=== PATIENT | male | born 1950 | race Caucasian/White ===

== ENCOUNTER → 2020-07-06 14:14 | Outpatient (BNVA) | payer MEDICARE, SELFPAY | PROVIDERS: PCP Internal Medicine; Referring Provider Internal Medicine; Visit Provider Urology | DX: Z76.89 Persons encountering health services in other specified circumstances (principal) | CPT/HCPCS: Q3014 ==

== ENCOUNTER → 2021-03-17 14:52 | Outpatient (BNVA) | payer MEDICARE, SELFPAY | PROVIDERS: PCP Internal Medicine; Visit Provider Urology | DX: E29.1 Testicular hypofunction (principal) | CPT/HCPCS: 99212 ==

== ENCOUNTER → 2021-09-19 14:31 | Outpatient (BNVA) | payer MEDICARE, SELFPAY | PROVIDERS: PCP Internal Medicine; Visit Provider Urology | DX: N52.9 Male erectile dysfunction, unspecified (principal); E29.1 Testicular hypofunction | CPT/HCPCS: Q3014 ==

== ENCOUNTER → 2022-03-29 09:12 | Outpatient (BNVA) | payer MEDICARE, SELFPAY | PROVIDERS: PCP Internal Medicine; Visit Provider Urology | DX: E29.1 Testicular hypofunction (principal); N52.9 Male erectile dysfunction, unspecified | CPT/HCPCS: Q3014 ==

== ENCOUNTER → 2022-09-28 14:05 | Outpatient (BNVA) | payer MEDICARE, SELFPAY | PROVIDERS: PCP Internal Medicine; Visit Provider Urology | DX: N52.9 Male erectile dysfunction, unspecified (principal); E29.1 Testicular hypofunction | CPT/HCPCS: Q3014 ==

== ENCOUNTER 2023-05-29 14:28 | Outpatient (AMB) | payer MEDICARE, SELFPAY ==
--- NOTE | 2023-05-29 14:31 | MHC.OFFVIS ---
Intake Intake Visit Reasons: 6M CBC/PSA/Testo(set) Intake Note: Patient is Present for Follow Up Urology Medication: Sildenafil, Tadalafil, Testosterone Antibiotic Allergies: None Blood Thinners: None Pharmacy: [facility] Allergies No Known Allergies Allergy (Verified 05/29/23 14:36) Medication List - Last Reconciled 05/29/23 by Cecilio Valladares MD amlodipine-valsartan 5-160 mg 1 tab PO DAILY atorvastatin 40 mg PO DAILY atorvastatin 80 mg PO DAILY bisacodyl 20 mg PO DAILY fenofibrate 160 mg PO DAILY flu vac qv 2019(18yr up)rc(PF) mL IM hydrochlorothiazide 12.5 mg PO DAILY irbesartan 300 mg PO DAILY losartan 100 mg PO DAILY peg 3350-electrolytes 236-22.74-6.74 -5.86 gram mL PO DIRECTED polyethylene glycol 3350 17 grams PO DAILY PRN sertraline 100 mg PO DAILY sildenafil 100 mg PO DAILY PRN 30 days tadalafil 5 mg PO DAILY 90 days testosterone cypionate 100 mg (0.5 mL) IM Q2W 30 days trazodone 50 mg PO BEDTIME triamcinolone acetonide 0.1% appl topical BID PRN HPI HPI Comments History of Present Illness Details Rohan is a pleasant male. He is a patient of Dr. Dhaliwal. Seen for the following urologic issues - male hypogonadism - erectile dysfunction Stable T 0.25 cc weekly on Saturdays with Wednesdays test Stable Moderate response to daily tadalafil with on demand sildenafil Variable Will continue Six month follow-up Hypogonadism: 0.25 cc every 1 weeks He presents today for further evaluation and followup of his hypogonadism, - longstanding T treatment with other physicians - Injection day Saturday Initial symptoms include erectile dysfunction Yes decreased libido Yes change in mood/depression Yes in muscle size/strength Yes increased fatigue/malaise Yes increased abdominal fat No tender breasts/gynecomastia No hair loss No osteopenia No Laboratory results 11/21 End of cycle T257 PSA 0.3 Hct 13.8 05/23 T 357, Hct 42 11/22 T325 Hct PSA 0.6 - 06/24 T 790 PSA 0.4 - 03/25 T 750, 0.4, 42, 08/25 T 205 P 0.2, 03/26 T 500, 09/27 T860 H 41, 05/27 T 1028 PSA 0.8 42 Current therapy includes injectable exogenous testosterone. Therapeutic plan continue current medication PFSH Medical History Hyperlipidemia Insomnia Depression Hypogonadism in male Surgical History History of surgery Review of Systems Const Denies chills and Denies fever(s) Card Reports no additional complaints and Denies syncope Resp Denies cough GI Denies abdominal pain and Denies heartburn Reports as per HPI and Denies change in libido Neuro Denies syncope Psych Denies change in libido Endo Denies change in libido Physical Exam Const General: cooperative, healthy appearing, comfortable and no acute distress Orientation/consciousness: patient oriented x3 HEENT Face and sinus: Yes normal facial exam Mouth: moist mucous membranes Neck Neck: Yes normal visual inspection, Yes full ROM and Yes trachea midline Chest Chest palpation & inspection: normal inspection of the chest Resp Effort & Inspection: normal respiratory effort, able to speak in complete sentences and no respiratory distress GI Inspection: Yes normal to inspection Back/Spine/Pelvis Cervical Spine: normal cervical lordosis Thoracic/Lumbar Spine: thoracic and lumbar spine normal to inspection Skin General skin exam: no rashes or lesions noted Neuro General: patient oriented x3, gait normal, tone normal and moves all extremities Extrem General: Yes normal to inspection and Yes capillary refill normal Assessment & Plan Assessment & Plan (1) Hypogonadism in male: Code(s): E29.1 - Testicular hypofunction (2) Erectile dysfunction: Code(s): N52.9 - Male erectile dysfunction, unspecified Plan Six month follow-up Medications: New needle (disp) 18 G (BD Regular Bevel [place]) To draw up medication 30 ea 0RF E29.1 - Testicular hypofunction needle (disp) 22 G To inject Testosterone 30 ea 0RF E29.1 - Testicular hypofunction, E34.9 - Endocrine disorder, unspecified syringe (disposable) (BD Luer-Bari Syringe) Testosterone injection weekly 30 ea 0RF E29.1 - Testicular hypofunction, E34.9 - Endocrine disorder, unspecified Changed From testosterone cypionate 100 mg (0.5 mL) IM Q2W 30 days 2 mL 5RF E29.1 - Testicular hypofunction To testosterone cypionate draw up with 18 needle inject with 22 40 mg (0.2 mL) IM Q2W 2 mL 5RF 30 days E29.1 - Testicular hypofunction Patient Instructions: Imaging studies, laboratory and physical exam results were discussed and reviewed in detail. No major barriers to patient understanding were identified. An opportunity to ask questions regarding the treatment plan was provided. All questions were answered. The patient expressed understanding and agreement with the above treatment plan. The patient is aware they should contact our office by phone for worsening of their current condition or the appearance of new urologic symptoms. Compliance is encouraged with any medications and followup testing that is ordered. It is a privilege to participate in the urologic care of your patient. If you have any questions or concerns regarding treatment for the above conditions, or other urologic issues, please do not hesitate to contact me. The office telephone contact is [phone]. This note is constructed using voice recognition software. While every effort has been made to ensure accuracy title department manager errors may have been included. Yours sincerely, Dr Cecilio Valladares MD, [facility] - Urology Providers of Expert, Compassionate Care for the Genitourinary System Coding Level of Care Code Est Pt Level 3 (88304) Diagnoses Hypogonadism in male E29.1 Erectile dysfunction N52.9
== END 2023-05-29 15:29 | disposition home or self-care (01) ==
PROVIDERS: Visit Provider Urology
DX: E29.1 Testicular hypofunction (principal); N52.9 Male erectile dysfunction, unspecified
CPT/HCPCS: 99213

== ENCOUNTER → 2023-05-29 14:28 | Outpatient (BNVA) | payer MEDICARE, SELFPAY | PROVIDERS: Visit Provider Urology | DX: E29.1 Testicular hypofunction (principal); N52.9 Male erectile dysfunction, unspecified | CPT/HCPCS: 99212 ==

== ENCOUNTER 2023-12-03 13:30 | Outpatient (AMB) | payer MEDICARE, SELFPAY ==
--- NOTE | 2023-12-03 13:31 | MHC.OFFVIS ---
Intake Visit Reasons: 6M CBC/PSA/TESTO(set)Confirmed Intake Note: Patient is Present for Telephone Follow Up labs Urology Med: Testosterone, Tadalafil,Sildenafil Antibiotic Allergy: None Blood Thinner: None Allergies No Known Allergies Allergy (Verified 05/29/23 14:36) Medication List - Last Reconciled 12/03/23 by Cecilio Valladares MD amlodipine-valsartan 5-160 mg 1 tab PO DAILY atorvastatin 40 mg PO DAILY atorvastatin 80 mg PO DAILY bisacodyl 20 mg PO DAILY fenofibrate 160 mg PO DAILY flu vac qv 2019(18yr up)rc(PF) mL IM hydrochlorothiazide 12.5 mg PO DAILY irbesartan 300 mg PO DAILY losartan 100 mg PO DAILY needle (disp) 18 G (BD Regular Bevel [place]) To draw up medication needle (disp) 22 G To inject Testosterone peg 3350-electrolytes 236-22.74-6.74 -5.86 gram mL PO DIRECTED polyethylene glycol 3350 17 grams PO DAILY PRN sertraline 100 mg PO DAILY sildenafil 100 mg PO DAILY PRN 30 days syringe (disposable) (BD Luer-Bari Syringe) Testosterone injection weekly tadalafil 5 mg PO DAILY 90 days testosterone cypionate 50 mg (0.25 mL) subcut QWEEK 30 days trazodone 50 mg PO BEDTIME triamcinolone acetonide 0.1% appl topical BID PRN HPI Comments Details: Rohan is a pleasant male. He is a patient of Dr. Dhaliwal. Seen for the following urologic issues - male hypogonadism - erectile dysfunction Telemedicine Evaluation 15 min Consultation [employer]ina Video Stable T 0.25 cc weekly on Saturdays with Wednesdays test Stable Good response response to daily tadalafil 5mg with on demand sildenafil 100mg Would like to continue Refills provided Lab work six-month Hypogonadism: 0.25 cc every 1 weeks He presents today for further evaluation and followup of his hypogonadism, - longstanding T treatment with other physicians - Injection day Saturday Initial symptoms include erectile dysfunction Yes decreased libido Yes change in mood/depression Yes in muscle size/strength Yes increased fatigue/malaise Yes Laboratory results 11/21 End of cycle T257 PSA 0.3 Hct 13.8 05/23 T 357, Hct 42 11/22 T325 Hct PSA 0.6 - 06/24 T 790 PSA 0.4 - 03/25 T 750, 0.4, 42, 08/25 T 205 P 0.2, 03/26 T 500, 09/27 T860 H 41, 05/27 T 1028 PSA 0.8 42 Current therapy includes injectable exogenous testosterone. Therapeutic plan continue current medication PFSH Medical History Hyperlipidemia Insomnia Depression Hypogonadism in male Surgical History History of surgery Review of Systems Const All systems reviewed & are unremarkable except as noted in HPI and below Reports no additional complaints Resp Reports no additional complaints GI Reports no additional complaints Reports as per HPI Musc Reports no additional complaints Physical Exam Telemedicine evaluation Appropriate responses Regular breathing rate and rhythm HEENT Head: Yes normal to inspection Ears: hearing grossly normal bilaterally Eyes General: appearance normal, both eyes and all related structures Neck Neck: Yes normal visual inspection Chest Chest palpation & inspection: normal inspection of the chest Resp Effort & Inspection: normal respiratory effort and able to speak in complete sentences Telehealth Telehealth Telehealth Platform: [facility] Directions Location of provider rendering services: practice address Location of patient: address on file Patient Identification confirmed using: Name, : Yes Telehealth method: video Patient verbally consented to treatment: Yes Patient verbally consented to billing insurance company: Yes Patient informed of any privacy concerns related to visit: Yes Minutes spent on Phone/Video with Pt.: 15 Assessment & Plan Assessment & Plan (1) Erectile dysfunction: Code(s): N52.9 - Male erectile dysfunction, unspecified Category: Medical (2) Hypogonadism in male: Code(s): E29.1 - Testicular hypofunction Category: Medical Plan Six-month follow-up lab work Orders: Orders Testosterone, Total 6 Months E29.1 - Testicular hypofunction Prostate Specific Antigen 6 Months E29.1 - Testicular hypofunction Complete Blood Count no Diff 6 Months E29.1 - Testicular hypofunction Medications: Changed From testosterone cypionate draw up with 18 needle inject with 22 40 mg (0.2 mL) IM Q2W 30 days 2 mL 5RF E29.1 - Testicular hypofunction To testosterone cypionate draw up with 18 needle inject with 22 50 mg (0.25 mL) subcut QWEEK 30 days 2 mL 5RF E29.1 - Testicular hypofunction Refilled tadalafil administer approximately 30min before sexual activity; do not use more than 1 dose per 24hrs 5 mg PO DAILY 90 days 90 tabs 1RF sexual activity E29.1 - Testicular hypofunction sildenafil administer 30 minutes to 4 hours before activity 100 mg PO DAILY 30 days PRN 30 tabs 1RF sexual activity E29.1 - Testicular hypofunction Patient Instructions: Imaging studies, laboratory and physical exam results were discussed and reviewed in detail. No major barriers to patient understanding were identified. An opportunity to ask questions regarding the treatment plan was provided. All questions were answered. The patient expressed understanding and agreement with the above treatment plan. The patient is aware they should contact our office by phone for worsening of their current condition or the appearance of new urologic symptoms. Compliance is encouraged with any medications and followup testing that is ordered. It is a privilege to participate in the urologic care of your patient. If you have any questions or concerns regarding treatment for the above conditions, or other urologic issues, please do not hesitate to contact me. The office telephone contact is [phone]. This note is constructed using voice recognition software. While every effort has been made to ensure accuracy wastewater superintendent errors may have been included. Yours sincerely, Dr Cecilio Valladares MD, [facility] [place] - Urology Providers of Expert, Compassionate Care for the Genitourinary System Coding Level of Care Code Tele Est Pt Level 3 (24745) Complex EM visit Add On G2211 Diagnoses Erectile dysfunction N52.9 Hypogonadism in male E29.1
== END 2023-12-03 14:00 | disposition home or self-care (01) ==
LOC: HO.HUSH 13:30
PROVIDERS: Visit Provider Urology
DX: N52.9 Male erectile dysfunction, unspecified (principal); E29.1 Testicular hypofunction
CPT/HCPCS: 99213; G2211

== ENCOUNTER → 2023-12-03 13:30 | Outpatient (BNVA) | payer MEDICARE, SELFPAY | PROVIDERS: Visit Provider Urology ==

== ENCOUNTER 2024-06-03 14:31 | Outpatient (AMB) | payer MEDICARE, SELFPAY ==
--- NOTE | 2024-06-03 14:32 | MHC.OFFVIS ---
Intake Visit Reasons: 6M PSA/Testo/CBC(set) Intake Note: Patient is present for Telephone labs follow up Urology Med: Sildenafil,Testosterone, Tadalafil Antibiotic Allergy: None Recent LABS: 05/26/2024 PSA: 0.4 TESTOSTERONE: 1370(H) CBC Fruit Grader Required: No Accompanied by: Self / Same As Patient Allergies No Known Allergies Allergy (Verified 06/03/24 14:34) HPI Comments Details: Rohan is a pleasant male. He is a patient of Dr. Dhaliwal. Seen for the following urologic issues - male hypogonadism - erectile dysfunction Telemedicine Evaluation 15 min Consultation [employer] Alina Video Current T riding somewhat high. Rohan tells me that he had switch to a 2 week cycle and the lab work was obtained after 3 or 4 days not mid cycle. Good response response to daily tadalafil 5mg with on demand sildenafil 100mg Would like to continue Refills provided Lab work six-month Hypogonadism: 0.25 cc every 1 weeks He presents today for further evaluation and followup of his hypogonadism, - longstanding T treatment with other physicians - Injection day Saturday Initial symptoms include erectile dysfunction Yes decreased libido Yes change in mood/depression Yes in muscle size/strength Yes increased fatigue/malaise Yes Laboratory results 11/21 End of cycle T257 PSA 0.3 Hct 13.8 05/23 T 357, Hct 42 11/22 T325 Hct PSA 0.6 - 06/24 T 790 PSA 0.4 - 03/25 T 750, 0.4, 42, 08/25 T 205 P 0.2, 03/26 T 500, 09/27 T860 H 41, 05/27 T 1028 PSA 0.8 42, 05/28 1370 0.4 37 Current therapy includes injectable exogenous testosterone. Therapeutic plan continue current medication PFSH Medical History Hyperlipidemia Insomnia Depression Hypogonadism in male Surgical History History of surgery Review of Systems Const All systems reviewed & are unremarkable except as noted in HPI and below Reports no additional complaints Resp Reports no additional complaints GI Reports no additional complaints Reports as per HPI Musc Reports no additional complaints Physical Exam Telemedicine evaluation Appropriate responses Regular breathing rate and rhythm HEENT Head: Yes normal to inspection Ears: hearing grossly normal bilaterally Eyes General: appearance normal, both eyes and all related structures Neck Neck: Yes normal visual inspection Chest Chest palpation & inspection: normal inspection of the chest Resp Effort & Inspection: normal respiratory effort and able to speak in complete sentences Telehealth Telehealth Telehealth Platform: [employer] Location of provider rendering services: practice address Location of patient: address on file Patient Identification confirmed using: Name, : Yes Telehealth method: video Patient verbally consented to treatment: Yes Patient verbally consented to billing insurance company: Yes Patient informed of any privacy concerns related to visit: Yes Minutes spent on Phone/Video with Pt.: 15 Assessment & Plan Assessment & Plan (1) Erectile dysfunction: Code(s): N52.9 - Male erectile dysfunction, unspecified Category: Medical (2) Hypogonadism in male: Code(s): E29.1 - Testicular hypofunction Category: Medical Plan Six-month follow-up lab work office Patient Instructions: Imaging studies, laboratory and physical exam results were discussed and reviewed in detail. No major barriers to patient understanding were identified. An opportunity to ask questions regarding the treatment plan was provided. All questions were answered. The patient expressed understanding and agreement with the above treatment plan. The patient is aware they should contact our office by phone for worsening of their current condition or the appearance of new urologic symptoms. Compliance is encouraged with any medications and followup testing that is ordered. It is a privilege to participate in the urologic care of your patient. If you have any questions or concerns regarding treatment for the above conditions, or other urologic issues, please do not hesitate to contact me. The office telephone contact is [phone]. This note is constructed using voice recognition software. While every effort has been made to ensure accuracy protection officer errors may have been included. Yours sincerely, Dr Cecilio Valladares MD, [facility] - Urology Providers of Expert, Compassionate Care for the Genitourinary System Coding Level of Care Code Tele Est Pt Level 3 (78088) Diagnoses Erectile dysfunction N52.9 Hypogonadism in male E29.1
== END 2024-06-03 15:00 | disposition home or self-care (01) ==
LOC: HO.HUSH 14:31
PROVIDERS: Visit Provider Urology
DX: N52.9 Male erectile dysfunction, unspecified (principal); E29.1 Testicular hypofunction
CPT/HCPCS: 99213

== ENCOUNTER → 2024-06-03 14:31 | Outpatient (BNVA) | payer MEDICARE, SELFPAY | PROVIDERS: Visit Provider Urology ==

== ENCOUNTER 2024-12-17 11:16 | Outpatient (AMB) | payer MEDICARE, SELFPAY ==
--- NOTE | 2024-12-17 11:23 | MHC.OFFVIS ---
Intake Visit Reasons: 6m/labs Intake Note: Pt presents to the office today for a 6 month follow up/labs. Allergies No Known Allergies Allergy (Verified 12/17/24 11:23) HPI Comments Details: Rohan is a pleasant male. He is a patient of Dr. Dhaliwal. Seen for the following urologic issues - male hypogonadism - erectile dysfunction Telemedicine Evaluation 15 min Consultation [employer] Alina Video Six-month follow-up lab work Current T riding somewhat high. Rohan tells me that he had switch to a 2 week cycle and the lab work was obtained after 3 or 4 days not mid cycle. Good response response to daily tadalafil 5mg with on demand sildenafil 100mg Would like to continue Refills provided Lab work six-month Hypogonadism: 0.25 cc every 1 weeks He presents today for further evaluation and followup of his hypogonadism, - longstanding T treatment with other physicians - Injection day Saturday Initial symptoms include erectile dysfunction Yes decreased libido Yes change in mood/depression Yes in muscle size/strength Yes increased fatigue/malaise Yes Laboratory results 11/21 End of cycle T257 PSA 0.3 Hct 13.8 05/23 T 357, Hct 42 11/22 T325 Hct PSA 0.6 - 06/24 T 790 PSA 0.4 - 03/25 T 750, 0.4, 42, 08/25 T 205 P 0.2, 03/26 T 500, 09/27 T860 H 41, 05/27 T 1028 PSA 0.8 42, 05/28 1370 0.4 37 Current therapy includes injectable exogenous testosterone. Therapeutic plan continue current medication PFSH Medical History Hyperlipidemia Insomnia Depression Hypogonadism in male Surgical History History of surgery Review of Systems Const All systems reviewed & are unremarkable except as noted in HPI and below Reports no additional complaints Resp Reports no additional complaints GI Reports no additional complaints Reports as per HPI Musc Reports no additional complaints Physical Exam Telemedicine evaluation Appropriate responses Regular breathing rate and rhythm HEENT Head: Yes normal to inspection Ears: hearing grossly normal bilaterally Eyes General: appearance normal, both eyes and all related structures Neck Neck: Yes normal visual inspection Chest Chest palpation & inspection: normal inspection of the chest Resp Effort & Inspection: normal respiratory effort and able to speak in complete sentences Telehealth Telehealth Telehealth Platform: [employer] Location of provider rendering services: practice address Location of patient: address on file Patient Identification confirmed using: Name, : Yes Telehealth method: voice only Patient verbally consented to treatment: Yes Patient verbally consented to billing insurance company: Yes Patient informed of any privacy concerns related to visit: Yes Minutes spent on Phone/Video with Pt.: 15 Assessment & Plan Assessment & Plan (1) Hypogonadism in male: Code(s): E29.1 - Testicular hypofunction Category: Medical (2) Erectile dysfunction: Code(s): N52.9 - Male erectile dysfunction, unspecified Category: Medical Plan Six-month follow-up lab work Orders: Orders Testosterone, Total 5 Months E29.1 - Testicular hypofunction Complete Blood Count no Diff 5 Months E29.1 - Testicular hypofunction Prostate Specific Antigen 5 Months E29.1 - Testicular hypofunction Medications: Changed From testosterone cypionate draw up with 18 needle inject with 22 100 mg (0.5 mL) subcut Q2W 30 days 2 mL 5RF E29.1 - Testicular hypofunction To testosterone cypionate draw up with 18 needle inject with 21 200 mg IM Q2W 2 mL 5RF 28 days E29.1 - Testicular hypofunction Patient Instructions: This note is constructed using voice recognition software. While every effort has been made to ensure accuracy cattle alley worker errors may have been included. Imaging studies, laboratory and physical exam results were discussed and reviewed in detail. No major barriers to patient understanding were identified. An opportunity to ask questions regarding the treatment plan was provided. All questions were answered. The patient expressed understanding and agreement with the above treatment plan. The patient is aware they should contact our office by phone for worsening of their current condition or the appearance of new urologic symptoms. Compliance is encouraged with any medications and followup testing that is ordered. It is a privilege to participate in the urologic care of your patient. If you have any questions or concerns regarding treatment for the above conditions, or other urologic issues, please do not hesitate to contact me. The office telephone contact is [phone]. Sincerely, Dr Cecilio Valladares MD, [facility] - Urology Compassionate Specialist Care for the Genitourinary System Coding Level of Care Code Tele Est Pt Level 3 (91776) Complex EM visit Add On G2211 Diagnoses Hypogonadism in male E29.1 Erectile dysfunction N52.9
--- OUTSIDE RECORDS SUMMARY | 2024-12-17 12:29 | XMS_ITS | Clinical Summary ---
Author Organization [facility] Address [address] [place] [address] Care Team Providers Care Supervisor Buffing And Pasting Name Role Phone Stanley Freeman MD Primary Care Provider + [phone] Medications Medication Sig Dispensed Refills Start Date End Date Status sertraline (ZOLOFT) 100 MG tablet TAKE 1 AND 1/2 TABLETS DAILY BY MOUTH 0 02/01/2024 Active amLODIPine-valsartan (EXFORGE) 5-160 MG per tablet TAKE 1 TABLET BY MOUTH EVERY DAY 0 01/05/2022 Active traZODone (DESYREL) 50 MG tablet Take by mouth. 0 12/25/2022 Active fenofibrate (TRIGLIDE) 160 MG tablet Take by mouth. 0 02/18/2023 Active atorvastatin (LIPITOR) tablet 80 mg TAKE 1 TABLET BY MOUTH EVERY DAY FOR 90 DAYS 0 03/25/2024 Active sildenafil (VIAGRA) 100 MG tablet Take 1 tablet (100 mg total) by mouth. 0 01/05/2022 Active tadalafil (CIALIS) 10 MG tablet Take 1 tablet (10 mg total) by mouth. 0 01/05/2022 Active Hydrocod Polst-Chlorphen Polst (Hydrocod Donnell-Chlorphe Donnell ER) 10-8 MG/5ML SUER Take 5 mL by mouth every night at bedtime as needed. 75 mL 0 04/12/2024 Active Active Problems No known active problems Social History Tobacco Use Types Packs/Day Years Used Date Smoking Tobacco: Never Assessed Sex and Gender Information Value Date Recorded Sex Assigned at Male 04/20/2024 4:05 PM EDT Gender Identity Not on file Sexual Orientation Not on file Job Start Date Occupation Industry Not on file Not on file Not on file Last Filed Vital Signs Vital Sign Reading Time Taken Comments Blood Pressure 135/68 05/02/2024 11:32 AM EDT Pulse 74 05/02/2024 11:32 AM EDT Temperature 36.6 ??C (97.8 ??F) 05/02/2024 11:32 AM E DT Respiratory Rate 18 04/20/2024 3:48 PM EDT Oxygen Saturation 99% 05/02/2024 11:32 AM EDT Inhaled Oxygen Concentration - - Weight 79.4 kg (175 lb) 05/02/2024 11:32 AM EDT Height 175.3 cm (5' 9 ) 04/20/2024 3:48 PM EDT Body Mass Index 25.84 04/20/2024 3:48 PM EDT Plan of Treatment Health Maintenance Due Date Last Done Comments Hepatitis C Screening 1952 Depression Screening 1964 Preventative Health Evaluation 1970 DTap / Tdap / Td (1 - Tdap) 1971 Colon Cancer Screening (Colonoscopy) 1997 Shingrix-Zoster Vaccine (1 of 2) 2002 Fall Risk Assessment 2017 COVID-19 Vaccine (2 - season) 2024 08/27/2023 Influenza Vaccine (#1) 2024 3, 05/15/2022, 06/19/2021, Additional history exists RSV Adult > 60+ Yrs or (1 - 1-dose 75+ series) 2027 Pneumococcal Vaccine Completed 05/22/2019, 04/29/20 18 Hepatitis B Vaccines Aged Out No long er eligible based on patient's age to complete this topic RSV Ped < 20 months Aged Out No longe r eligible based on patient's age to complete this topic Care Teams Supervisor Buffing And Pasting Relationship Specialty Start Date End Date Stanley Freeman MD PCP - General Family Medicine 04/20/24
--- OUTSIDE RECORDS SUMMARY | 2024-12-17 12:29 | XMS_ITS | Clinical Summary ---
Author Organization [facility] [place] Address [address] [place] [address] Care Team Providers Care Forensic Identification Specialist Name Role Phone Stanley Freeman MD Primary Care Provider [phone] Medications amLODIPine-vals mata (EXFORGE) 5-160 mg per tablet Take 1 tablet by mouth 1 (one) time each day. 04/25/2021 Active atorvastatin (LIPITOR) 80 mg tablet Take 1 tablet (80 mg total) by mouth 1 (one) time each day. 11/13/2023 Active fenofibrate (LOFIBRA) 160 mg tablet Take by mouth. 05/12/2021 Active sertraline (ZOLOFT) 100 mg tablet Take 1.5 tablets (150 mg total) by mouth 1 (one) time each day. Active tadalafiL (CIALIS) 10 mg tablet Take 1 tablet (10 mg total) by mouth. 01/05/2022 Active traZODone (DESYREL) 50 mg tablet Take 2 tablets (100 mg total) by mouth. 02/02/2021 Active Active Problems No known active problems Social History Tobacco Use Types Packs/Day Years Used Date Smoking Tobacco: Never Assessed Sex and Gender Information Value Date Recorded Sex Assigned at Not on file Legal Sex Male 4:05 AM EST Gender Identity Not on file Sexual Orientation Not on file Obstetrics History Last Filed Vital Signs Vital Sign Reading Time Taken Comments Blood Pressure 130/76 06/23/2024 1:13 PM EST Pulse 76 06/23/2024 1:13 PM EST Temperature - - Respiratory Rate - - Oxygen Saturation 98% 06/23/2024 1:13 PM EST Inhaled Oxygen Concentration - - Weight 73 kg (161 lb) 06/23/2024 1:13 PM EST Height 175.3 cm (5' 9 ) 06/23/2024 1:13 PM EST Body Mass Index 23.78 06/23/2024 1:13 PM EST Plan of Treatment Health Maintenance Due Date Last Done Comments Zoster Vaccines (2 of 3) 05/07/2013 03/12/2013 Abdominal Aortic Aneurysm (AAA) Screen 07/08/2022 Cholesterol Screening (Lipid Panel) 07/08/2022 Colorectal Cancer Screening: Colonoscopy 07/08/2022 Depression Screening 07/08/2022 Falls Risk Assessment 07/08/2022 Hepatitis C Screening 07/08/2022 Medicare Annual Wellness Visit 07/08/2022 Social Influencers of Health Screening 07/08/2022 COVID-19 Vaccine ( season) 2024 08/27/2023, 06/14/2021, 11/09/2020, Additional history exists Influenza Vaccine (Season Ended) 2025 05/28/2023, 05/15/2022, 06/19/2021, Additional history exists Hypertension/CHF/CAD Annual BMP Blood Test 04/20/2025 04/20/2024, 04/20/2024, 04/20/2024 RSV Immunization Adult Patients (1 - 1-dose 75+ series) 2027 DTaP,Tdap,and Td Vaccines (2 - Td or Tdap) 01/06/2032 01/05/2022 Pneumococcal Vaccine: 50+ Years Completed 05/22/2019, 04/29/2018 HIB Vaccines Aged Out No longer eligi ble based on patient's age to complete this topic HPV Vaccines Aged Out No longer eligi ble based on patient's age to complete this topic Hepatitis A Vaccines Aged Out No long er eligible based on patient's age to complete this topic Hepatitis B Vaccines Aged Out No long er eligible based on patient's age to complete this topic IPV Vaccines Aged Out No longer eligi ble based on patient's age to complete this topic MMR Vaccines Aged Out No longer eligi ble based on patient's age to complete this topic Meningococcal ACWY Vaccine Aged Out N o longer eligible based on patient's age to complete this topic Meningococcal B Vaccine Aged Out No l onger eligible based on patient's age to complete this topic RSV Immunization Patients Under 20 months Aged Out No longer eligible based on patient's age to complete this topic Varicella Vaccines Aged Out No longer eligible based on patient's age to complete this topic Procedures Procedure Name Priority Date/Time Associated Diagnosis Comments ANNUAL BMP BLOOD TEST Routine 04/20/2024 from Last 3 Months or Most Recently Relevant to Health Maintenance Results * Annual BMP Blood Test (04/20/2024) Annual BMP Blood Test abstracted Historical Provider HEALTH MAINTENANCE Final Result from Last 3 Months or Most Recently Relevant to Health Maintenance Insurance [address] [id number] Care Teams Forensic Identification Specialist Relationship Specialty Start Date End Date Stanley Freeman MD PCP - General 04/20/24
--- OUTSIDE RECORDS SUMMARY | 2024-12-17 12:29 | XMS_ITS ---
Author Name [facility] Organization Unknown Results Test Name/Text Value Interpretation Date Range Source CALCIUM SERPL [facility] 9.9mg/dL Normal [id number] 8.4 - 10 .2 [facility] CREAT SERPL [facility] 1.1mg/dL Normal [id number] 0.7 - 1.3 [facility] Glomerular filtration rate/1.73 sq M. predicted 71 Normal [id number] 60 - [facility] BUN SERPL [facility] 22mg/dL Above high normal [id number] 9 - 20 [facility] SODIUM SERPL [facility] 135mmol/L Normal [id number] 135 - 145 [facility] ANION GAP SERPL [facility] 7mmol/L Normal [id number] 5 - 14 [facility] HCO3 SER [facility]NC 26mmol/L Normal [id number] 24 - 32 [facility] POTASSIUM SERPL [facility] 3.7mmol/L Normal [id number] 3.5 - 5.1 [facility] GLUCOSE SERPL [facility] 133mg/dL Normal [id number] 70 - 199 [facility] CHLORIDE SERPL [facility] 102mmol/L Normal [id number] 98 - 10 7 [facility] MCH RBC QN AUTO 28.8pg Normal [id number] 25 - 33 C [facility] HCT VFR BLD AUTO 38.2% Below low normal [id number] 40 - 54 [facility] MONOCYTES NFR BLD AUTO 12.7% Above high normal [id number] 2 - 12 [facility] PMV BLD AUTO 8.5fL Normal [id number] 7.4 - 11.4 [facility] RBC NO. BLD AUTO 4.44M/uL Below low normal [id number] 4.7 - 6 [facility] BASOPHILS IN BLOOD BY AUTOMATED COUNT 0K/uL Normal [id number] 0 - 0.2 [facility] EOSINOPHIL NFR BLD AUTO 2.3% Normal [id number] 0 - 6 [facility] LYMPHOCYTES NO. BLD AUTO 0.9K/uL Below low normal [id number] 1 - 3.2 [facility] IMMATURE GRANULOCYTE, PERCENT 1.6% Above high normal [id number] 0 - 1 [facility] NEUTROPHILS NO. BLD AUTO 5.5K/uL Normal [id number] 1. 8 - 7.8 [facility] MCV RBC AUTO 86fL Normal [id number] 78 - 100 [facility] NUCLEATED RBC 0% Normal [id number] 0 - 1 [facility] PLATELET NO. BLD AUTO 254K/uL Normal [id number] 150 - 450 [facility] MCHC RBC AUTO MCNC 33.5g/dL Normal [id number] 32 - 36 [facility] WBC NO. BLD AUTO 7.7K/uL Normal [id number] 4 - 10.5 [facility] BASOPHILS NFR BLD AUTO 0.3% Normal [id number] 0 - 2 [facility] NEUTROPHILS NFR BLD AUTO 71.7% Normal [id number] 44 - 74 [facility] EOSINOPHIL NO. BLD AUTO 0.2K/uL Normal [id number] 0 - 0.5 [facility] HGB BLD MCNC 12.8g/dL Below low normal [id number] 13.5 - 18 [facility] RDW RBC AUTO RTO 13.7% Normal [id number] 12.1 - 17. 7 [facility] LYMPHOCYTES NFR BLD AUTO 11.4% Below low normal [id number] 2020 20 - 48 [facility] MONOCYTES NO. BLD AUTO 1K/uL Above high normal 021 0 - 0.8 [facility] IMMATURE GRANULOCYTE, ABSOLUTE 0.12k/uL Above high normal [id number] - 0.1 [facility] History of Medication Use Medication Directions Dispensed Refills Start Date End Date Stat amLODIPine-valsartan (EXFORGE) 5-160 mg per tablet Take 1 tablet by mouth 1 (one) time each day. 04/25/2021 active traZODone (DESYREL) 50 mg tablet Take 2 tablets (100 mg total) by mouth. 02/02/2021 active sertraline (ZOLOFT) 100 mg tablet Take 1.5 tablets (150 mg total) by mouth 1 (one) time each day. active Problems Problem Status Onset Date Problem Type Date of Resolution Source Colon cancer screening active EncounterDiagnosisAct [facility] Serrated adenoma of colon active EncounterDiagnosisAct [facility] COVID-19 active EncounterDiagnosisAct [facility] Hypertension active EncounterDiagnosisAct [facility] Encounters Encounter Type Encounter Reason Primary Diagnosis Location Date Ambulatory Follow-up Follow-up [facility] 06/23 Ambulatory [facility] 05/15/2024 Emergency COVID-19 COVID-19 [facility] 04/20/20 24 Care Team Organization Name Specialty Phone Email Start Date End Da te [facility] Pete Stanley [facility] 06/23/2024 [facility] 04/21/2024 [facility] 04/20/2024 [facility] 0 04/20/2024
--- OUTSIDE RECORDS SUMMARY | 2024-12-17 12:29 | XMS_ITS | Encounter Summary ---
Author Organization [facility] Address [address] [place] [address] Care Team Providers Care Dehydration Plant Operator Name Role Phone Stanley Freeman MD Primary Care Provider Encounter Details Date Type Department Care Team (Latest Contact Info) Description 05/05/2024 3:37 PM EDT Hospital Encounter [facility]ORIC ENCOUNTERS [facility] CONVERSION ONLY Cough, unspecified Social History Tobacco Use Types Packs/Day Years Used Date Smoking Tobacco: Never Assessed Sex and Gender Information Value Date Recorded Sex Assigned at Not on file Legal Sex Male 4:05 AM EST Gender Identity Not on file Sexual Orientation Not on file documented as of this encounter Last Filed Vital Signs Vital Sign Reading Time Taken Comments Blood Pressure - - Pulse - - Temperature - - Respiratory Rate - - Oxygen Saturation - - Inhaled Oxygen Concentration - - Weight 79.4 kg (175 lb) 05/02/2024 11:32 AM EDT Height 175.3 cm (5' 9 ) 04/20/2024 3:48 PM EDT Body Mass Index 25.84 04/20/2024 3:48 PM EDT documented in this encounter Plan of Treatment Not on file documented as of this encounter Procedures Procedure Name Priority Date/Time Associated Diagnosis Comments XR CHEST AP AND LAT Routine 05/05/2024 3 :45 PM EDT Cough, unspecified documented in this encounter Results * XR CHEST AP AND LAT (05/05/2024 3:45 PM EDT) Anatomical Region Laterality Modality Radiographic Ame ging 05/02/2024 11:5 9 AM EDT Narrative 05/05/2024 3:52 PM EDT Exam: XR CHEST AP AND LAT Given Indication: cough post covid Comparison: None Findings: No pneumothorax or pleural effusion. Hyperexpanded lungs without focal consolidation or pulmonary edema. The cardiomediastinal silhouette is within normal limits. No evidence of acute bone abnormality. Impression: Hyperexpanded lungs without focal consolidation or pulmonary edema. Report reviewed and signed by : Dr. Jd Gaspar MD on 05/05/2024 3:52 PM. Workstation Name - [id number] Procedure Note Jd Gaspar MD - 06/01/2024 Exam: XR CHEST AP AND LAT Given Indication: cough post covid Comparison: None Findings: No pneumothorax or pleural effusion. Hyperexpanded lungs without focal consolidation or pulmonary edema. The cardiomediastinal silhouette is within normal limits. No evidence of acute bone abnormality. Impression: Hyperexpanded lungs without focal consolidation or pulmonary edema. Report reviewed and signed by : Dr. Jd Gaspar MD on 05/05/2024 3:52PM. Workstation Name - [id number] Stanley Freeman MD IMG XR PROCEDURES Final Resu lt documented in this encounter Visit Diagnoses Diagnosis Cough, unspecified documented in this encounter Care Teams Dehydration Plant Operator Relationship Specialty Start Date End Date Stanley Fereman MD PCP - General 04/20/24 documented as of this encounter
== END 2024-12-17 13:37 | disposition home or self-care (01) ==
PROVIDERS: Visit Provider Urology
DX: E29.1 Testicular hypofunction (principal); N52.9 Male erectile dysfunction, unspecified
CPT/HCPCS: 99213; G2211

== ENCOUNTER → 2024-12-17 11:16 | Outpatient (BNVA) | payer MEDICARE, SELFPAY | PROVIDERS: Visit Provider Urology ==

== ENCOUNTER 2025-06-22 15:11 | Outpatient (AMB) | payer MEDICARE, SELFPAY ==
--- NOTE | 2025-06-22 15:10 | A.OFFVIS_ITS ---
Intake Visit Reasons: PSA testosterone cbc 6 mo follow Intake Note: Pt presents to the office today for a 6 month follow up/labs. Urology meds : Sildenafil, Tadalafil , Testosterone Blood Thinner : none Labs done 05/19/25: Totasl Testosterone 884, Total PSA 0.29 [employer] Required: No Accompanied by: Self / Same As Patient Allergies No Known Allergies Allergy (Verified 06/22/25 15:11) HPI Comments Details: Rohan is a pleasant male. He is a patient of Dr. Dhaliwal. Seen for the following urologic issues - male hypogonadism - erectile dysfunction Six-month follow-up lab work T is at an acceptable level Mid-cycle numbers Good response response to daily tadalafil 5mg with on demand sildenafil 100mg Would like to continue Refills provided Lab work six-month Hypogonadism: 0.25 cc every 1 weeks He presents today for further evaluation and followup of his hypogonadism, - longstanding T treatment with other physicians - Injection day Saturday Initial symptoms include erectile dysfunction Yes decreased libido Yes change in mood/depression Yes in muscle size/strength Yes increased fatigue/malaise Yes Laboratory results 11/21 End of cycle T257 PSA 0.3 Hct 13.8 05/23 T 357, Hct 42 11/22 T325 Hct PSA 0.6 - 06/24 T 790 PSA 0.4 - 03/25 T 750, 0.4, 42, 08/25 T 205 P 0.2, 03/26 T 500, 09/27 T860 H 41, 05/27 T 1028 PSA 0.8 42, 05/28 1370 0.4 37, 05/29 T 880 P 0.3 Current therapy includes injectable exogenous testosterone. Therapeutic plan continue current medication [facility] Medical History Hyperlipidemia Insomnia Depression Hypogonadism in male Surgical History History of surgery Review of Systems Const Denies chills and Denies fever(s) Card Reports no additional complaints and Denies syncope Resp Denies cough GI Denies abdominal pain and Denies heartburn Reports as per HPI and Denies change in libido Neuro Denies syncope Psych Denies change in libido Endo Denies change in libido Physical Exam Const General: cooperative, healthy appearing, comfortable and no acute distress Orientation/consciousness: patient oriented x3 HEENT Face and sinus: Yes normal facial exam Mouth: moist mucous membranes Neck Neck: Yes normal visual inspection, Yes full ROM and Yes trachea midline Chest Chest palpation & inspection: normal inspection of the chest Resp Effort & Inspection: normal respiratory effort, able to speak in complete sentences and no respiratory distress GI Inspection: Yes normal to inspection Back/Spine/Pelvis Cervical Spine: normal cervical lordosis Thoracic/Lumbar Spine: thoracic and lumbar spine normal to inspection Skin General skin exam: no rashes or lesions noted Neuro General: patient oriented x3, gait normal, tone normal and moves all extremities Extrem General: Yes normal to inspection and Yes capillary refill normal Assessment & Plan Assessment & Plan (1) Erectile dysfunction: Code(s): N52.9 - Male erectile dysfunction, unspecified Category: Medical (2) Hypogonadism in male: Code(s): E29.1 - Testicular hypofunction Category: Medical Plan Refill medications Six-month follow-up Orders: Orders Testosterone, Total 5 Months E29.1 - Testicular hypofunction Prostate Specific Antigen 5 Months E29.1 - Testicular hypofunction Hematocrit 5 Months E29.1 - Testicular hypofunction Medications: Refilled testosterone cypionate draw up with 18 needle inject with 21 200 mg IM Q2W 2 mL 5RF 28 days E29.1 - Testicular hypofunction Patient Instructions: This note is constructed using voice recognition software. While every effort has been made to ensure accuracy ice grinder errors may have been included. Imaging studies, laboratory and physical exam results were discussed and reviewed in detail. No major barriers to patient understanding were identified. An opportunity to ask questions regarding the treatment plan was provided. All questions were answered. The patient expressed understanding and agreement with the above treatment plan. The patient is aware they should contact our office by phone for worsening of their current condition or the appearance of new urologic symptoms. Compliance is encouraged with any medications and followup testing that is ordered. It is a privilege to participate in the urologic care of your patient. If you have any questions or concerns regarding treatment for the above conditions, or other urologic issues, please do not hesitate to contact me. The office telephone contact is [phone]. Sincerely, Dr Cecilio Valladares MD, J[facility] - Urology Compassionate Specialist Care for the Genitourinary System Coding Level of Care Code Est Pt Level 3 (61284) Complex EM visit Add On G2211 Diagnoses Erectile dysfunction N52.9 Hypogonadism in male E29.1
== END 2025-06-22 15:37 | disposition home or self-care (01) ==
LOC: HO.HUSH 15:12
PROVIDERS: Visit Provider Urology
DX: N52.9 Male erectile dysfunction, unspecified (principal); E29.1 Testicular hypofunction
CPT/HCPCS: 99213; G2211

== ENCOUNTER → 2025-06-22 15:11 | Outpatient (BNVA) | payer MEDICARE, SELFPAY | PROVIDERS: Visit Provider Urology | DX: E29.1 Testicular hypofunction (principal); N52.9 Male erectile dysfunction, unspecified | CPT/HCPCS: 99212 ==